=== PATIENT | male | born 1945 | race Caucasian/White ===

== ENCOUNTER 2019-03-15 18:10 | Inpatient (IN) | payer OTHER ==
[~2019-03-15] VITALS: Ht 175.3 cm; Wt 80.7 kg
--- NOTE | ~2019-03-15 | D ---
[facility] [place] [address] DISCHARGE SUMMARY Name: ARIAN SURESH Room #: 520A-A [facility] IN M.R.#: [id number] Admission: 03/15/19 Attend Phys: Shaan Brady DO Discharge: 03/30/19 Date of : 47 Report #: [id number] THIS REPORT FOR: //name// CC: Shaan Brady FAM physician/PCP DATE OF SERVICE: 03/30/2019 INPATIENT PSYCHIATRIC DISCHARGE SUMMARY ATTENDING PHYSICIAN: Shaan Brady DO. SEQUINS WINDER AT THE TIME OF DISCHARGE: Lorenzo Phillip MD. DISCHARGE DIAGNOSES: Major neurocognitive disorder, likely due to multiple factors including Alzheimer's disease with behavioral disturbance, improved. Comorbidities from this admission include urinary tract infection, on Keflex; hypothyroidism, on brand name of levothyroxine; hypertension; benign prostatic hypertrophy; aphasia secondary to possible a vascular event versus Alzheimer's process. DISCHARGE PLAN: Discharging to [facility]. DIET: Sodium restriction mechanical chopped, Ensure daily. The patient will need 24-hour assistance and supervision. DISCHARGE MEDICATIONS: Include tamsulosin 0.4 mg p.o. daily for BPH; losartan 100 mg p.o. daily for hypertension; Depakote Sprinkles 500 mg p.o. b.i.d. for impulse control and mood stabilization; Seroquel 125 mg p.o. at 0900, 1500, 2100 for psychosis and impulse control; memantine 10 mg p.o. daily; hydrochlorothiazide 12.5 mg p.o. daily; senna/docusate 2 tabs p.o. b.i.d., hold if diarrhea for bowel motility; cholecalciferol 5000 international units daily. The patient takes brand name Synthroid, was home supplied, I believe, it is 100 mcg p.o. daily. LABORATORY DATA: Of note from this admission are as follows: CBC within normal limits except hemoglobin and hematocrit 13.0 and 38.2, eosinophils high at 4.2. Metabolic panel most recent CMP/BMP was a BUN 24, creatinine 1.0, estimated GFR 73. Total T3 of 82. Ammonia level was 11. Urinalysis shows 3+ blood, few bacteria, couple other positives grew out Staphylococcus saprophyticus. Toxicology: Depakote level was 46 on 03/28, so we did increase it slightly. I believe it was 375 b.i.d. with Sprinkles. The patient should have level done in about a week at [facility] to document therapeutic range. REASON FOR ADMISSION: Back on 03/15/2019 is as follows: Sent from [address] [address] DISCHARGE SUMMARY Name: ARIAN SURESH Room #: 520A-A [facility] IN M.R.#: [id number] Admission: 03/15/19 Attend Phys: Shaan Brady DO Discharge: 03/30/19 Date of : 47 Report #: [id number] [place] due to concerns of increased aggression. There were some allegations of inappropriate sexual behavior. HOSPITAL COURSE: The patient was admitted to Geriatric-Psychiatry Unit. The patient did have some periods of combativeness, although he was generally not sexually inappropriate. The patient required some careful medication adjustments because we did run into the situation; however, he was too sedated. His daughter and he was understandably upset with this and back the Seroquel down to 125 mg 3 times a day, which showed improved alertness. He was more verbal, coming down you could count the number of words in a conversation he would make ____ with the right hand. He was at least 3 times ____ by the end of his stay. The patient unfortunately has overall unfavorable prognosis and family meeting time was spent counseling the family on this. On the day of discharge, the patient was not overtly suicidal or homicidal. Still some intermittent impulsiveness. PHYSICAL EXAMINATION: VITAL SIGNS: Temperature 37.0, pulse 84, respirations 13, BP 125/91, O2 sat 94%. MUSCULOSKELETAL: In the wheelchair. His gait did decline over the admission. MENTAL STATUS EXAMINATION: This is a well-developed, slightly unkempt male, appearing stated age. Attention and Concentration impaired. Speech variably verbal and at times nonsensical. Some psychomotor agitation, no psychomotor retardation. Mood and affect appeared to be congruent, generally calm. Memory not able to be tested. Insight impaired. Judgment impaired. Fund of knowledge well below average. Prognosis for patient is guarded. By: [id number] Shaan Brady, DO /nt
[2019-03-15 18:11] VITALS: BP 131/71
[2019-03-15 18:54] LABS: ABSOLUTE NEUTROPHILS 5.1 thou/uL (1.4-8.2); BASOPHILS 0.5 % (0.0-2.0); EOSINOPHILS 4.2 % (0.0-3.0); HEMATOCRIT 38.2 % (42.0-52.0); LYMPHOCYTES 29.1 % (24.0-44.0); MCH 32.2 pg (26.0-34.0); MCV 94.8 fL (80.0-100.0); PLATELET COUNT 235 thou/uL (150-400); POLYS 58.2 % (36.0-66.0); RBC 4.03 mil/uL (4.50-6.00); WBC 8.7 thou/uL (4.0-11.0)
[2019-03-15 18:54] LABS: URINE BILIRUBIN NEGATIVE (Negative); URINE BLOOD 3+ (Negative); URINE CLARITY SL CLOUDY; URINE COLOR YELLOW; URINE GLUCOSE-RANDOM* NEGATIVE (Negative); URINE KETONES NEGATIVE (Negative); URINE NITRITE-REFLEX NEGATIVE (Negative); URINE PROTEIN (DIPSTICK) NEGATIVE (Negative); URINE SPECIFIC GRAVITY 1.015 (1.005-1.035); URINE UROBILINOGEN 0.2 E.U./dl (0.2-1.0)
[2019-03-15 18:55] LABS: URINE LEUKOCYTES-REFLEX 3+ (Negative)
[2019-03-15 19:03] LABS: SQUAMOUS 0-3 Few /LPF (0-3); URINE RBC >20 Many /HPF (0-2)
[2019-03-15 19:04] LABS: BACTERIA-REFLEX 1-9 Few /HPF (None Seen); CASTS None Seen /LPF (None Seen); CRYSTALS None Seen /LPF (None Seen); TRANSITIONAL EPITHEL CELL 0-3 Few /LPF (None Seen)
[2019-03-15 19:05] LABS: CALCIUM 9.1 mg/dL (8.5-10.1); POTASSIUM 3.9 mmol/L (3.5-5.1)
[2019-03-15 19:08] LABS: ALBUMIN 3.6 g/dL (3.4-5.0); TOTAL BILIRUBIN 0.4 mg/dL (<0.1-1.0); TOTAL PROTEIN 6.7 g/dL (6.4-8.2)
[2019-03-15] MEDS ORDERED: ASA81BEC PO (19:10)
[2019-03-15] MEDS ORDERED: ARICEPT10 M1 PO (19:14)
[2019-03-15] MEDS ORDERED: PROZAC10 M1 PO (20:01)
[2019-03-15] MEDS ORDERED: PROZAC20 M1 PO (20:01)
[2019-03-15] MEDS ORDERED: LOSARTAN-HCTZ1 EAC3 PO (20:02)
[2019-03-15] MEDS ORDERED: MELATONIN3 M1 PO (20:02)
[2019-03-15] MEDS ORDERED: MEMANTINE HCL10 MG PO (20:03)
[2019-03-15] MEDS ORDERED: FLOMAX0.4 MG PO (20:04)
[2019-03-15] MEDS ORDERED: SYNTHROID100 MC1 PO (20:04)
[2019-03-15] MEDS ORDERED: TESSALON PERLE100 M1 PO (21:06)
[2019-03-15] MEDS ORDERED: ADVIL200 M3 PO (21:07)
[2019-03-15] MEDS ORDERED: LORAZEPAM 0.50.5 MG PO (21:08)
[2019-03-15] MEDS ORDERED: QUETIAPINE FUMA25 MG PO (21:09)
[2019-03-15 21:10] VITALS: BP 122/65
[2019-03-15] MEDS ORDERED: VALACYCLOVIR1000 MG PO (21:10)
[2019-03-15 23:52] VITALS: BP 129/71
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
[2019-03-16 07:56] VITALS: BP 183/90
[2019-03-16 10:00] LABS: FOLIC ACID 31.4 ng/mL (8.6-58.9)
[2019-03-16 12:30] VITALS: BP 146/85
--- NOTE | 2019-03-16 12:41 | NUR ---
Received pt on dining block, sitting on wheelchair. Drowsy but rousable. On room air. Vital signs stable-with BP elevation noted- BP meds given this AM. No code status noted. Dementia with aphasia noted- relative to bring in communication aids as per manager story nurse. No inappropriate behaviors noted this AM. Dr Melendez informed during his rounds re: drowsyness this morning. Encouraged and assisted in eating, drinking and ADLs. Falls bundle in place, on wheelchair with lap pads on. Due medications given as prescribed- able to swallow meds w/o difficulty. With fixation to female staff and hypersexual behaviors- none noted.
--- NOTE | 2019-03-16 13:42 | NUR ---
Nutrition: Assessing due to Dani score of 11. Admit: aggression, dementia. Pt in wheelchair, getting set up by nursing for lunch. Unable to interview pt this date. EMR states aphasia and that family is to bring in communication aids he uses at nursing facility. Per Dani, nutrition documented as adequate, score likely lower due to slightly limited mobility/in wheelchair. No wounds or skin issues documented. No weight loss or decreased appetite noted on nutrition screen. He did refuse breakfast, but lunch intake not yet recorded. Per latest RN note, is requiring encouragement and assistance w/ ADLs/meals. Will add daily Ensure until more data is available regarding po trends. Will follow up again 03/19 to reassess.
--- NOTE | 2019-03-16 15:27 | NUR ---
Leo called [facility] to get DPOA phone number Angelina Manjarrez [phone] and then called her and left a VM to complete the Leo assessment
[2019-03-16 20:00] VITALS: BP 136/105
--- NOTE | 2019-03-17 02:51 | NUR ---
patient aox1 confused and forgetful. patient incontinent of both bowel and bladder pericare and barrier cream applied as needed. patient was restless this shift but easy to redirect. no hypersexual behaviour noted this shift. patient calm and cooperative with care and meds. patient encouraged fluids. patient in bed asleep at this time breathing regular and unlaboured.
--- NOTE | 2019-03-17 12:03 | NUR ---
Leo spoke with pt's dght and set up a fmaily meeting for Mar 24 at 2pm. She reported that she would like a fmaily meeting and meet wiuth [facility] before contact is made. Leo also provided her with Dr Brady's phone number
[2019-03-17 13:14] VITALS: BP 114/93
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
[2019-03-17 16:49] VITALS: BP 114/93
[2019-03-17 19:24] VITALS: BP 107/72
[2019-03-18 01:18] VITALS: BP 107/72
--- NOTE | 2019-03-18 03:47 | NUR ---
PT RESTLESS AND WHEELING HIMSELF AROUND IN WC. MESSING WITH TRASH SACKS, BUT RESPONDED TO GENTLE REDIRECTION. SPEECH RAMBLING AND GENERALLY INCOHERANT. PLAYFUL AND COOPERATIVE WITH TAKING HS MEDS. HAS SLEPT WELL THROUGH THE NIGHT.
[2019-03-18 09:06] VITALS: BP 117/83
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
[2019-03-18 20:24] VITALS: BP 150/91
--- NOTE | 2019-03-19 04:09 | NUR ---
ASSUMED CARE ON 03/19/19 @ ABOUT 19:15, AMBULATING IN OTHER PATIENTS ROOMS, BUT REFUSED TO GO INTO HIS OWN ROOM. AMBULATING THROUGH THE DAY ROOM STOPPING AT PEERS CHAIR(S) AND TOUCHING THEIR WATER CUPS, PATTING THEIR ARMS AND GETING CLOSE AND INTRUSIVE. GIVES ONE PATIENT'S WATER TO ANOTHER PATIENT. AWAKE QUITE LATE, COMBATITIVE WITH INCONTINENT CARE. PROVIDED IM HALDOL 5MG AND IM ATIVAN 1MG ONE TIME FOR AGRESSION WITH ADL, AND INTRUSIVE BEHAVIOR. REDIRECTION QUITE DIFFICULT. A&O X 1 TO SELF ONLY, CAN ONLY STATE FIRST NAME. RECEIVED AN ORDER AND PROVIDED TRAZADONE PO FOR SLEEP. VERBALLY DEMONSTRATES SPEACH APHASIA, CONFUSION.
[2019-03-19 04:21] VITALS: BP 150/91
--- NOTE | 2019-03-19 05:59 | NUR ---
SLEPT 7 HOURS
[2019-03-19 09:06] VITALS: BP 124/92
[2019-03-19 09:27] VITALS: BP 124/92
--- NOTE | 2019-03-19 10:48 | NUR ---
Nutrition update: Following for po trends. Ensure Enlive supplementation added daily at start of week as it was unknown how oral intake would go. PO intake has been variable, but seems to be doing increasingly well today. Noted to be A&O to self only, confusion, speech aphasia. Ate 100% of breakfast and 100% AM snack today. Otherwise eating 50-100% of all recorded meals on 03/17, 03/18. Did refuse 2 meals yesterday, but no further refusals today. Drinking 50-100% of recent Ensure supplements. Last BM 03/18. Given semi inconsistent po trends thus far, will continue nutrition supplements. If PO trends remain mostly 75-100%, will keep as low nutrition risk. Continue to follow for any decline.
--- NOTE | 2019-03-19 12:02 | NUR ---
ASSUMED CARE AT 0700 THIS MORNING. PT. HAS BEEN COOPERATIVE WITH ASSESSMENT, MEDICATIONS, MEALS ON THE UNIT. HE REMAINS INCONTINENT. STAFF HAS HAD TO CLEAN HIM UP. HE IS A BIT AGITATED WITH THIS, PUSHING STAFF AWAY BUT DID NOT STRIKE OUT. SHE HAS REMAINED ON THE UNIT WATCHING TV MOST OF THE MORNING. HE IS UNABLE TO TALK SO HE CAN BE UNDERSTOOD. MOST OF HIS SPEECH IS UNINTELLIGIBLE.
[2019-03-19 20:36] VITALS: BP 96/71
[2019-03-19 22:56] VITALS: BP 96/71
--- NOTE | 2019-03-20 03:08 | NUR ---
PT UP IN DAYROOM EARLY IN SHIFT. VERY INVASIVE TOWARD OTHER PATIENTS, BUT RESPONDS TO REDIRECTION. WANDERING THE UNIT AND OCCASIONALLY INTO OTHER PTS ROOMS. NEEDED TO BE ESCORTED OUT OF SEVERAL ROOMS TONIGHT. HAS BEEN ESCORTED TO BED 3 TIMES BUT REMAINS RESTLESS AND UNABLE TO REST. SEROQUEL 100 FINALLY GIVEN AROUND 0200. BUT HE REMAINS UP IN DAYROOM OF THIS WRITING.
[2019-03-20 08:31] VITALS: BP 136/68
[2019-03-20 09:19] VITALS: BP 136/68
--- NOTE | 2019-03-20 15:29 | NUR ---
PT CALM ET COOPERATIVE THIS SHIFT. NOC SHIFT REPORTED THAT PT DID NOT SLEEP LAST NOC SO PT STAYED IN BED DURING BRKFST THIS AM. PT WAS ASSISTED UP AT LUNCH ET ATE ALL MEALS ET TOOK MEDICATIONS WITHOUT DIFFICULTY. AMBULATES AD PERLA. REDIRECTED EASILY. CONTINUES TO HAVE GARBLED SPEECH WITH VERY FEW CLEAR WORDS. DOES NOT FREQUENTLY SOCIALIZE WITH STAFF OR PEERS. WILL CONTINUE TO MONITOR PER PROTOCOL.
[2019-03-20 20:30] VITALS: BP 136/68
--- NOTE | 2019-03-21 00:06 | NUR ---
PATIENT HAS BEEN CALM AND COMPLIANT TONITE. HE HAS BEEN RESTLESS AND WANDERING INTO PATIENT ROOMS. HE HAS BEEN COMBATIVE WITH CARES. GEODON 15MG IM GIVEN. PATIENT WAS GETTING UP AND DOWN IN ROOM AND KEEPING HIS ROOM MATE UP. HE WANDERED INTO A FEMALE PATIENT'S ROOM AND CLIMBED INTO THE EMPTY BED IN HER ROOM. PATIENT DIRECTED BACK TO HIS BED. PATIENT CURRENTLY SLEEPING. BED ALARM ON AND BED IN LOW POSITION.
--- NOTE | 2019-03-21 02:03 | NUR ---
PATIENT'S DAUGHTER, NILE SURESH AND PATIENT'S EX SIGNIFICANT OTHER STARTED CALLING [facility] UNIT AROUND [address] WANTING INFORMATION ON PATIENT AND DID NOT HAVE CODE. THEY CALLED OFF AND ON FOR 2 HOURS ACTING LIKE THEY WERE THE OTHER AND MANIPULATING AND TRYING TO GET INFORMATION. AT ONE POINT NILE WAS YELLING AND BEING BELIGERANT WITH ME ON THE PHONE SO I HUNG UP. SHE CALLED BACK 2 HOURS LATER AND WAS CALMER, BUT THEN WAS CRYING. I SPOKE WITH VENEER CLIPPER, SELENA TO LET HER KNOW WHAT WAS GOING ON AND THEN PATIENT CALLED AND TALKED TO SELENA. EMAIL SENT UPDATING DR CHANEY, TONYA GUZMAN AND KENDRICK ELLISON, AND MAILE FLOYD. SPOKE WITH CHAZ FOR GUIDANCE ON THE JORGE QUESTIONS I HAD. SPOKE WITH JORGE BEFORE ALL OF THIS D/T SHE CALLED FOR AN UPDATE AND THEN TOLD ME I COULD LET NILE KNOW PATIENT'S CONDITION FOR OLVIER, WHICH I DID WHEN SHE CALLED BACK. I DID TELL JORGE DELEON THAT I COULD NO LONGER GIVE HER INFORMATION IF SHE DID NOT HAVE THE CODE. PANCHO WAS FINE WITH THIS. PANCHO STATES THAT NILE AND HER DO NOT TALK AND HAVE NOT FOR YEARS. NILE SURESH DIRECTED TO TO VEGETABLE PICKER IF MORE QUESTIONS.
[2019-03-21 08:19] VITALS: BP 143/92; BP 179/81
--- NOTE | 2019-03-21 14:26 | NUR ---
Leo spoke at length with Angelina and she stated that it was " ok to tell eriberto that dad is ok" but that Eriberto was not a decision maker and that her mom ( ex to pt0 was not to involved at all. Unfortunetly they have a HX of being beligerent with care takers and will lie about their identity to get information. Angelina is leaving it to the discretion of the [facility] staff on how many calls they are willing to take from Eriberto and that she is allow to get get information about her dad but that is all.
--- NOTE | 2019-03-21 14:44 | NUR ---
LEO spoke with pt's daughter Lidia [phone] and reported on her questions. Lidia was reasonable and willing to accomodate the restrictions on communication. Leo will advise nursing that it is OK to provide her with information but to redirect her to SW if there is difficulty. A code was not provided because Lidia's mother is not allowed to get any information. Lidia would like to be included in the family meeting on Saturday if Angelina agrees to it.
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
--- NOTE | 2019-03-21 16:14 | NUR ---
SW met with pt's visitors that included pt's ex , step dght and a friend. Nursing attempted to clarify if they were able to visit and the visitors did not have a code. Sw and nursing called DPOA and requested permission for the visit. SW then spoke with the visitors and educated them on the process and the protocol for this unit. Ex was not willing to take no for an answer and argued that she was being left out and Angelina was being controlling. Sw attempted redirect and explain but after a few attempts Sw advised them that the visit was over and they had to leave. Leo and nursinbg left voicemails for Angelina.
--- NOTE | 2019-03-21 16:38 | NUR ---
Pt's family returned with the code. They stated that they got it from Lidia. Lidia reported that she got it from nursing. family is aware that they can visit during visiting hours.
[2019-03-21 19:21] VITALS: BP 92/51
--- NOTE | 2019-03-21 22:52 | NUR ---
PATIENT RESTLESS TONIGHT. SPOKE WITH DR CHANEY AND HE SAID TO HOLD THE TRAZADONE AND GIVE SERQUEL 100MG PO. PATIENT WAS GIVEN THIS ABOUT AN HOUR AGO AND IS STILL VERY INTRUSIVE TRYING TO GO IN TO PATIENTS ROOMS AND GETTING FRUSTRATED/AGITATED WHEN TRYING TO BE REDIRECTED. SITTING IN DINING ROOM WITH PATIENT NOW HE THUMBS THRU PAPERS AND REORGANIZES THEM. PATIENT SHOWS NO SIGNS OF SHUTTING DOWN. WHEN TOILETED AND PLACED IN BED, HE GETS UP A FEW MINUTES LATER AND WANDERS. PATIENT HAD GEODON 15MG AT 1230 TODAY AND HAS NOT SLEPT A WINK SINCE HAVING IT. HE SLEPT VERY WELL LAST EVENING AFTER HAVING THE GEODON. PATIENT IS VERY BUSY. HE ALWAYS WANTS TO BE DOING SOMETHING. WILL CALL DR CHANEY IF PATIENT DOESN'T SHOW SIGNS OF CALMING DOWN SOON.
--- NOTE | 2019-03-22 00:34 | NUR ---
PATIENT BECOMING MORE DIFFICULT TO REDIRECT AND MORE WANDERING AND INTRUSIVE. PATIENT SAT AND FOLDED WASH CLOTHS FOR A BIT. CALLED DR CHANEY AND RECIEVED ORDER FOR GEODON 20MG IM. INJECTION TO LEFT DELTOID WITHOUT INCIDENT. PATIENT DIRECTED TO BATHROOM AND THEN ASSISTED TO BED. BED IN LOW POSITION AND BED ALARM ON. PATIENT STILL MOVING AROUND IN BED BUT QUIET. CONTINUING TO MONITOR.
[2019-03-22 00:40] VITALS: BP 92/51
--- NOTE | 2019-03-22 06:04 | NUR ---
PATIENT SLEPT THRU THE NIGHT AFTER RECEIVING GEODON 20MG IM. PATIENT WAS CHECKED REGULARLY FOR INCONTINENCE AND CARES PERFORMED NEEDED. PATIENT CURRENTLY STILL SLEEPING. BED IN LOW POSITION AND BED ALARM ON.
[2019-03-22 08:30] VITALS: BP 184/103
--- NOTE | 2019-03-22 10:04 | NUR ---
03/21 MAILE called and left LIANET Alfaro about family getting the code. 03/22 Maile spoke with Angelina and apologized that family got the code, she asked for the code to be changed. MAILE reported this to [employer] master control supervisor and she stated that this SW can create a new code and leave for nursing on the chart and give to Angelina. It was also established that Lidia can receive information about this pt by this SW and no one else. The new code is 2489. This was provided to Angelina and nursing.
--- NOTE | 2019-03-22 13:19 | NUR ---
SLEPT LATE THIS AM UNTIL APPROX 1000-ONCE UP IS AMBULATORY AND INTRUSIVE ENTERING PEERS ROOMS-ASSISTED TO BATHROOM AND WITH APPROX 5-10 MINUTES OF COAXING AND QUEING BRIEF WAS ABLE TO BE CHANGED WITHOUT BECOMING PHYSICALLY COMBATIVE. GAIT IS STEADY WITHOUT ASSISTIVE DEVICES-IMPUL;SIVE ATTEMPTING TO MOVE FURNITURE OR GET ON TOP OF BEDSIDE TABLE IN ROOM BUT SO FAR THIS SHIFT HAS BEEN ABLE TO BE REDIRECTED WITH PHYSICAL AGGRESSION-REQUIRES FREQUENT AND MULTIPLE ATTEMPTDS TO REDIRECT. BP NOTED TO BE ELEVATED THIS AM AT 184/100-CHRISTOPHER RECHECK AT 1230 BP IS 144/72
[2019-03-22 13:25] VITALS: BP 144/72
--- NOTE | 2019-03-22 16:49 | NUR ---
Nursing reported that this pt's ex attempted to visit and does nto ahve a code and was turned away. Then Lidia called and left a VM demanding a call back . Nursing then said that the ex wanted to speak with this Sw. In an attempt to ease staff tension this Sw spoke with her, and reported that the code was changed. She was not satisfied with this answer, and then she admitted she just wanted " to see if you were still here so Lidia could talk to you." I reported that I will answer my VM when I can and asked her stop contacting the staff or security would be called. This was witnessed by Donna HANKINS. MAILE had Keren LOPEZ as a witness to the phone called returned to Lidia. Maile offered to answer medical questions and Lidia became accusatory and challenged the decisions. She is also sending her HIPPA document via email so she can speak with nursing for updates. MAILE had to redirect her multiple times, and then hung up when Lidia became beligerant. Maile reported this to nursing and advised that no one take any calls from Lidia until the HIPPA is verified tomorrow.
--- NOTE | 2019-03-22 17:11 | NUR ---
SW received the HIPAA paperwork and printed it, and placed it on the chart for review.
[2019-03-22 20:12] VITALS: BP 93/62
[2019-03-22 22:52] VITALS: BP 93/62
--- NOTE | 2019-03-23 03:38 | NUR ---
PT OUT IN DAY ROOM EARLY IN THE SHIFT. RESTLESS AND PACING. CHECKING OUT ALL THE DOOR AND CABINETS. AFTER SNACKS, TOOK HS MEDS. INVASIVE AND ENTERING OTHER PTS ROOMS PERIODICALLY. ABLE TO REDIRECT. GIVEN PRN SEROQUEL 100MG AT 2400. HAS NOT SLEPT TONIGHT. CURRENTLY SITTING QUIETLY IN DAY ROOM. CONFUSED AND APHASIC.
--- NOTE | 2019-03-23 07:00 | NUR ---
Assumed care of patient this am. Patient up walking around. Patient calm and pleasant. Patient has to be redirected not to touch other people or take things from other people. Patient has to be encouraged to use walker. Patients gait is unsteady. Patient takes medications whole with liquids. Patients assessment reveals clear breath sounds, active bowel sounds and s1 s2 heard with auscultation. Patient denies pain.
[2019-03-23 07:30] VITALS: BP 111/80
[2019-03-23 07:32] VITALS: BP 111/80
--- NOTE | 2019-03-23 11:45 | NUR ---
PT's currently on track to achieving goal of one RT session to increase orientation and communication skills. Communicating has become much clearer from admission but still mumbles and stutters words. Pt wonders disoriented and confused with very little down time. Pt will except fidget vests, balls, wooden puzzle things to do, but will take off and place them all over the unit. Pt empties/goes through the trash, empties tissue boxes and sometimes makes wadded balls and eats them. Pt's standing proximity or touching boundies are often inappropriate. No change towards plan.
[2019-03-23 19:36] VITALS: BP 103/80
--- NOTE | 2019-03-23 22:30 | NUR ---
ASSUMED CARE ON 03/23/19 @ ABOUT 19:30, IN W/C IN DAY ROOM WITH LAP ANTHONY ON. COOPERATED WITH ASSESSMENT, UNABLE TO ANSWER MENTAL HEALTH QUESTIONS. HRRR, LUNGS CTA, ABD NORMOACTIVE X 4 Q. STAFF REPORTS BM ON 03/20. WHEN CLOSE TO OTHER PEERS, TOUCHES PEOPLE AND THEIR BELONGINGS AND DOES NOT RESPOND TO REDIRECTION, DUE TO DEMENTIA AND CONFUSION.
[2019-03-24 01:41] VITALS: BP 103/80
--- NOTE | 2019-03-24 03:35 | NUR ---
PHYSICALLY AGRESSIVE WITH X2 STAFF WHILE TRANSFERRING FROM W/C TO BED AND GIVING INCONTINENT CARE.
--- NOTE | 2019-03-24 06:14 | NUR ---
SLEPT 6 HOURS
--- NOTE | 2019-03-24 09:51 | NUR ---
MAILE spoke with Renea at length this AM. It ws decided that Lidia will get an email update about the meeting and will communicate with this Sw via email. Nursing reported that Lidia called twice yesterday for an update and was appropriate. In the event that she harrasses staff, or makes unreasonable demands on staff, she will get the medical infomation in written form once a day. Renea stated that she has been known to record phone calls and use 3 way calling to trick and manipulate staff. MAILE emailed a response to Lidia regarding the meeting today, including instructions and CC'd Harjit .
--- NOTE | 2019-03-24 15:17 | NUR ---
Maile met with Dr Brady and Renea, and the DON and Admin from [facility]. Dr brady reported on the meds changes and confirmed the d/c for early next week . MAILE emailed the notes from this family meeting to Lidia per her request. MAILE also asked US Angela to get the face sheet corrected. Maile also provided [facility] with a packet of medical records as an update. Pt later joined them and they visited for about 30 minutes.
--- NOTE | 2019-03-24 19:21 | NUR ---
Lying supine in bed without s/o distress. Garbled speech in response to questions. No speech/gestures suggestive of SI/HI. Alerts to name but no repsonse to other questions. Breath sounds clear t/o, bilaterally equal. Reg HR auscultated. Color pink with brisk capillary refill. No edema noted. Voids per brief. Takes yogurt with meds, compliant. Active bowel sounds over soft, rounded abdomen. Smear of stool around rectum. No documented BM since 03/18. 1600 Dr. Brady aware of no BM since 03/18. Mag Citrate ordered and given by Maurilio Fried, JOHN. Spent most of day in WC with peers. Daughter called twice and left message requesting update. Returned phone call. 1819 Remains in dining room with peers without s/o distress.
[2019-03-24 19:54] VITALS: BP 122/67
--- NOTE | 2019-03-25 04:12 | NUR ---
ASSUMED CARE ON 03/24/19 @ ABOUT 19:15, SITTING IN W/C WITH LAP ANTHONY IN PLACE. A&O X 1 TO PERSON ONLY. SPEAKS AND ANSWERS QUESTIONS, BUT THE WORDS DO NOT FORM A SENTENCE, GARBLED WORD CHANTELLEAD REPLY. TAKES MEDS CRUSHED IN PUDDING, PRN QUETIAPINE 100 MG GIVEN PO @ 23:10. EXPERIENCES INCREASED AGITATION, INCLUDING VISUAL HALLUCINATIONS, PT TRIES TO AUDITOR INTERNAL UNSEEN ITEMS FROM THE FLOOR AROUND HIS FEET. IM OLANZAPINE 10 MG GIVEN @ 0200, TRANSFERRED TO BED AND INCONTINENT CARE GIVEN. EYES CLOSED, RESPIRATIONS EVEN AND UNLABORED AT THIS WRITING.
[2019-03-25 05:39] VITALS: BP 122/67
--- NOTE | 2019-03-25 06:01 | NUR ---
SLEPT 3.4 HOURS
[2019-03-25 08:00] VITALS: BP 162/72
[2019-03-25 09:34] VITALS: BP 162/72
--- NOTE | 2019-03-25 12:07 | NUR ---
STAFF WANTED RN TO LOOK AT THE PATIENT'S FEET. UPON VISUALIZATION THEY ARE PINK, POSITIVE PEDAL PULSES. NO SKIN BREAKDOWN NOTED. +3 EDEMA TO RIGHT FOOT, +4 EDEMA TO LEFT FOOT. NO DISCOLORATION NOTED EITHER. TOENAILS LONG.
[2019-03-25 13:14] VITALS: BP 163/72
--- NOTE | 2019-03-25 13:45 | NUR ---
0700 Assumed care. Patient was sleepy this morning. Daughter visitied found him sleepy and discussed medication changes with the the psychiatrist. Med changes done. Patient has good appetite. Breakfast and lunch consumed. 1300 Patient alert and fully awake. Talking to other patients. Will continue to monitor.
--- NOTE | 2019-03-25 14:32 | NUR ---
TALKED TO DR. RIOS RE:PT'S FEET BEING EDEMATOUS. STATED HE WOULD LOOK AT HIS MEDICATIONS AND POSSIBLY PLACE HIM ON SOME LASIX.
--- NOTE | 2019-03-25 15:48 | NUR ---
Pt's daughter Robert called to the nurse station a couple times. The studio receptionist asked SW to talk with her because she does not have a code and wants pt updates. She also asked the studio receptionist for the code. MAILE explained to the studio receptionist that Robert can receive updates, but is not supposed to have the code. The receptionst transferred Robert to . Robert began the phone conversation irate that she was transferred to and stated that she was told "she can call to the unit at any time and nursing staff have to give her updates." MAILE explained she would be happy to give her updates; however, contrary to what she believes she was told that updates can be provided pending the nursing staff are available to do so. She cannot call once an hour and get updates because there is no staffing available for that. MAILE read to her notes from the last day. Robert said thank you and then again wanted to address that she needs to be able to get updates "whenever she wants and as many times as she likes. She also mentioned the code. MALIE stated that Robert knows she can receive updates but cannot have the code. She began to raise her voice and yell. MAILE warned her twice to not speak in that manner or she will have to disconnect the call. Robert continued so MAILE said to her "I am hanging up. Goodbye and have a Happy New Year." MAILE team will continue to follow pt during her stay on this unit.
[2019-03-25 19:32] VITALS: BP 106/67
--- NOTE | 2019-03-26 02:16 | NUR ---
ASSSUMED CARE FROM DAY SHIFT PT UP IN WHEELCHAIR ASSESMENT COMPLETED PT CONFUSED , WAS ABLE TO TAKE MEDICATON IN ICE CREAM BUT WAS NOT ABLE TO FEED SLEF THE REMINDER OF SNACK. NURSE FED THE REST OF ICE CREAM TO PATIENT. PT ALOS BECAME AGRESSIVE WHEN ATTEMPTED TO REPLACE HAT ON HEAD THAT HAD FALLEN OFF. PT GRAB AND PUSH NURSE. DAUGHTER MICOLE CALLED FOR UPDATE AND STATUS REPORT. SO FAR PT REMAINS IN WHEELCHAIR PICKING AT PANTS AND CHAIR AND THINGS IN AIR, NOT SLEEPING , PT REMAIN AGITATED THROUGHOUT SHIFT, PANCHO DISCOURAGE GIVEN PT MEDICATON DUE PT WAS VERY DROWSY THIS PASS AM. WILL CONINTUE TO FREQ ROUNDS AND REPORT CHANGES OR ABNORMAL FINDINGS. SO FAR NO PRN MEDICATION GIVEN.
[2019-03-26 06:22] LABS: CALCIUM 9.4 mg/dL (8.5-10.1); CREATININE 1.1 mg/dL (0.7-1.3); POTASSIUM 3.1 mmol/L (3.5-5.1)
[2019-03-26 09:06] VITALS: BP 170/92
--- NOTE | 2019-03-26 11:46 | NUR ---
Nutrition follow up: Pt continues to eat really well for the most part. Eating 50-100% of most meals. Meal average = 67% per the last 3 consecutive days with no meal refusals. Good appetite noted by nursing yesterday. He is still within ~2# of weight from 1 week ago. 170.5# on 03/16, 168# per 03/23. Nursing notes indicate edematous feet w/ 3+ edema in R foot, 4+ edema in L foot. Pt may benefit from reduced sodium diet. Note new orders for chopped foods today. Will request low Na diet restrictions be added on too. Pt drinking 50-100% of 1 daily Ensure Enlive for the most part. Will continue for added kcal/protein benefit. Keep as low nutrition risk.
[2019-03-26 11:50] VITALS: BP 114/61
--- NOTE | 2019-03-26 14:15 | NUR ---
Sitting in WC bent at waist. Combative when trying to redirect. Brought back to room for assessment. Only verbalizations are profanity with some rambling speech that is not understandable. No response to questions r/t orientation, pain or SI/HI. No verbalizations or actions suggestive of SI/HI, pain. Breath sounds clear t/o, bilaterally equal. Reg HR auscultated. Color pink with brisk capillary refill and palpable peripheral pulses. Incontinent of large amount of yellow urine per brief. Active bowel sounds over soft, rounded abdomen. Ambulates with assistance of 2 staff members about 20 feet. Gait very unsteady. Placed in recliner in day room. 1100 Ate about 5 bites of breakfast and drank all liquids including bottle of ensure. Daughter here visiting. Many questions. Expressing concern about usefulness of medication and edema in feet. Dr. Brady discussing progress with daughter. Daughter requesting copies of medical record including medication lists. Referred to medical record dept after conferring with scrap charger. 1400 Bed bath and shave done by hand washer. Much more alert, sitting up in WC and looking around day room. Rambling speech that is not understandable. Calm. Took liquid KCL without difficulty and ate yogurt with lasix that was crushed. No s/o distress.
[2019-03-26 19:46] VITALS: BP 118/59
--- NOTE | 2019-03-27 02:11 | NUR ---
ASSUMED CARE FROM DAY SHIFT PT IN RECLINER CHAIR AWAKE , APPEARS TO BE WATCHING TV. HS SNACK EATEN OF ICE CREAM AND PO MEDICATION TAKEN. PT THEN ASSISTED TO BED AFTER TAI CARE. PT THEN LIAD IN BED FOR 30 MIND THEN CLIMB OUT OF BED CAUSING BED ALARM TO ALARM. PT THEN PLACED BACK IN RECLINER WITH LAP-ANTHONY. DAUGHTER PANCHO CALLED AND UPDATE GIVEN ON FATHER STATUS, DAUGHTER STATES THAT FATHER USALLY SLEEPS IN CHAIR OR SOFA BUT RAELY IN THE BED. PT LESS AGRRESSIVE WITH STAFF. WILL CONINTUE WITH CURRENT PLAN OF CARE AND WILL REPORT CHANGES OR ABNORMAL FINDINGS FREQ CHECKS CONINTUE FOR SAFETY.
[2019-03-27 06:49] LABS: CALCIUM 9.5 mg/dL (8.5-10.1); POTASSIUM 3.7 mmol/L (3.5-5.1)
[2019-03-27 08:14] VITALS: BP 114/62
--- NOTE | 2019-03-27 15:02 | NUR ---
LEO called Renea and left a VM regarding Saturday D/C. Then left a VM for admissions at [facility] to set up a time for transportation. weekend Leo will send updates
--- NOTE | 2019-03-27 17:05 | NUR ---
PT ASSESSED AT START OF SHIFT. LESS CONFUSED AND SPEECH MORE COHERENT W/ SOME SHORT SENTENCES THIS AFTERNOON. EATING FAIR WHEN FED. TAKING MEDS CRUSHED IN APPLESAUCE W/ MUCH ENCOURAGEMENT AND DISTRACTION. EASILY AGITATED WHEN ROUTINE DISRUPTED OR THINGS HE DOESN'T LIKE. DAUGHTER HERE TO VISIT AND HAPPY TO SEE DAD DOING MUCH BETTER.
--- NOTE | 2019-03-27 21:52 | NUR ---
ASSUMED CARE ON 03/27/19 AT ABOUT 19:20, IN W/C WITH LAP ANTHONY IN PLACE. AT ABOUT 2100 TOOK HIS SHIRT OFF AND COULD NOT BE CONVINCED TO LEAVE IT ON. COOPERATED WITH ASSESSMENT, TOOK MEDS CRUSHED IN ICE CREAM WITH WATER. ALERT, ORIENTED TO FIRST NAME ONLY, SPEAKS INDIVIDUAL WORDS, BUT DOES NOT MAKE A SENTENCE. WORD SALAD NOTED. WILL CONTINUE TO MONITOR Q 12 MINUTES FOR PATIENT SAFETY.
[2019-03-27 23:58] VITALS: BP 114/62
--- NOTE | 2019-03-28 05:34 | NUR ---
slept 4 hours overnight
[2019-03-28 07:50] VITALS: BP 137/86
[2019-03-28 09:59] VITALS: BP 137/86
--- NOTE | 2019-03-28 10:17 | NUR ---
0647 REPORT RECEIVED FROM OVERNIGHT SHIFT, PATIENT WAS NOT COMBATIVE THIS MORNING WITH HYGIENE. PATIENT ATE BREAKFAST TOOK MEDICATION WITHOUT INCIDENCE. PATIENT QUIET, CALM, COOPERATIVE THIS AM. WILL CONTINUE TO MONITOR PATIENT FOR BEHAVIORS AND SAFETY.
--- NOTE | 2019-03-28 13:51 | NUR ---
Date of Admission: 03/15/19 Date of Activity Therapy Assessment:03/18/2019 Activity Goal:One group or 1:1 session Initial Goal:Pt will attend at least one recreation therapy group or 1:! session, per day, to increase orientation and communication skills. Weekly progress towards goal:Achieved Group participation level:Passive Behaviors observed: Pt appears disoriented and confused. Pt has been seen wandering and trying to climb things. Pt passively participates in groups. Plan: No change towards goal
[2019-03-28 19:46] VITALS: BP 123/74
--- NOTE | 2019-03-29 03:46 | NUR ---
ASSUMED CARE OF PATIENT AT APPROXIMATELY 1915 ON 03/28/19. PATIENT IS IN DAY ROOM, WHEN TALKING TO PATIENT SPEECH WAS GARBLED AND DIFFICULT TO UNDERSTAND. HE REFUSED HS MEDS, IM ZYPREXA GIVEN ORDERED. HE DID BECOME COMBATIVE AT ONE POINT BUT WAS EASILY REDIRECTABLE. NURSING STAFF LED PT TO HIS ROOM TO LAY DOWN, BUT PATIENT KEPT GETTING UP WITH AN UNSTEADY GAIT. CURRENTLY AT THIS TIME PATIENT IS IN DAY ROOM WITH EYES CLOSED RR EVEN AND UNLABORED, NO S/S OF MEDICAL DISTRESS. WILL CONTINUE TO MONITOR.
[2019-03-29 09:24] VITALS: BP 111/76
--- NOTE | 2019-03-29 19:12 | NUR ---
0715 ASSUMED CARE OF PATIENT ON 03/29/19. PATIENT IN RECLYNER SLEEPING IN DAY ROOM. 0815 AWAKES WHEN NAME CALLED. UNABLE TO ANSWER QUESTIONS, STARTS TO RAMBLE ON WHEN TALKING TO. SLEEPS DURING BREAKFAST. MEDS TAKEN CRUSHED WITH PUDDING WITHOUT INCIDENT. LAP BUDDING IN PLACE FOR UNSTEADY BALANCE WHEN AMBULATING.
--- NOTE | 2019-03-29 19:16 | NUR ---
AT 1600 DAUGHTER PANCHO HERE VISITING. PATIENT UP AMBULATING IN HALLWAYS WITH DAUGHTER. DAUGHTER STATES " I AM HAPPY TO SEE MY DAD DOING BETTER". PATIENT ATE DINNER WITH ASSISTANCE. PATIENT IN DAYROOM IN RECLYNER .
[2019-03-29 20:22] VITALS: BP 115/87
--- NOTE | 2019-03-30 00:57 | NUR ---
ASSUMED CARE ON 03/29/19 @ 19:15, SITTING IN A W/C WITH A LAP ANTHONY IN PLACE. A&O X 1 TO PERSON, ABLE TO STATE FULL NAME. WHEN SPOKEN TO, ANSWERS IN RAMBLING GARBLED SPEACH. HRRR, LUNGS CTA, ABD NORMO X 4Q. TOOK MEDS CRUSHED IN PUDDING @ ABOUT 20:15, NOTED TO BE AWAKE @ 22:00, GIVEN TRAZADONE PO FOR INSOMNIA, AND TYLENOL PO FOR GENERAL DISCOMFORT. WHEN TRANSFERRED TO BED @ 23:20, BECAME COMBATITIVE WITH CARE, GIVEN OLANZAPINE 5 MG IM. TRANSFERRED TO BED X 2 ASSIST, AND HEAD OF BED RAISED AND FEET RAISED. BED IN LOW POSITION AND BED ALARM SET, RESTLESS AND AWAKE OF THIS WRITING. WILL CONTINUE TO MONITOR Q 12 MINUTES FOR PATIENT SAFETY.
[2019-03-30 04:19] VITALS: BP 115/87
--- NOTE | 2019-03-30 06:32 | NUR ---
slept 1.4 hours overnight
--- NOTE | 2019-03-30 08:59 | NUR ---
Leo left a VM and then spoke with pt's dght and reported that d/c could be today. She would like to speak with Dr Brady today and will be up for a visit this AM. Leo also called and left another VM at [facility].
[2019-03-30 09:21] VITALS: BP 125/91
--- NOTE | 2019-03-30 11:38 | NUR ---
ASSUMED CARE AT 0700 THIS MORNING. PT. IN A W/C SITTING. HE WAS PLEASANT WITH THE ASSESSMENT BUT GRABBED THIS RN'S ARM AND STARTED PULLING ME CLOSER TO HIM. I ASKED HIM TO LET GO, HE LOOKED AT ME AND THEN LET GO. HE HAS SPOKEN VERY LITTLE, MOSTLY WORD SALAD, BUT OCCASIONALLY WILL ANSWER QUESTIONS WHEN ASKED. HIS DAUGHTER ARRIVED AT 1045 FOR SITTING AND WANTED TO ASK A FEW QUIESTION. THIS SORTER/ASSAY TECH SAT WITH HER AND ANSWERED QUESTIONS. THE DAUGHTER SHAVED HIM WITH AN ELECTRIC RAZOR BELONGING TO THE PT. BELONGINGS GATHERED AND SENT HOME WITH THE DAUGHTER. DAUGHTER WAITED TO SPEAK WITH DR. CHANEY.
[2019-03-30] MEDS ORDERED: FLOMAX0.4 MG PO (12:58)
[2019-03-30] MEDS ORDERED: COZAAR100 MG PO (12:58)
[2019-03-30] MEDS ORDERED: DEPAKOTE SPRIN125 MG PO (12:59)
[2019-03-30] MEDS ORDERED: SEROQUEL 100 M100 M1 PO ×2 (13:00)
[2019-03-30] MEDS ORDERED: SEROQUEL 25 MG25 M1 PO (13:00)
[2019-03-30] MEDS ORDERED: NAMENDA 5 MG TAB5 M1 PO (13:01)
[2019-03-30] MEDS ORDERED: HYDROCHLOROTH12.5 M1 PO (13:01)
[2019-03-30] MEDS ORDERED: SENNA-TIME S T1 EACH PO (13:02)
[2019-03-30] MEDS ORDERED: VITAMIN D325 MCG PO (13:02)
[2019-03-30] MEDS ORDERED: HOME MEDICATION PO (13:02)
--- NOTE | 2019-03-30 13:59 | NUR ---
Leo spoke with [facility] and set up transportation for 2-2:30pm . Leo reproted this to nursing and Dr Brady and sylvia Meier. LEO made packet and left it on the chart. Leo sent the d/c summary, labs and recent notes via fax.
--- NOTE | 2019-04-01 12:25 | NUR ---
I called Frank's DPOA today and left a message for her to call me.
== END 2019-03-30 13:30 | DRG 57 ==
LOC: ER 18:10 → SBH 19:28 → EROBS 19:28 → ER 19:28 → SBH 19:41
PROVIDERS: Hospitalist; Nurse Practitioner Family; Physician Assistant; ADMIT Psychiatry & Neurology Psychiatry
DX: G30.9 Alzheimer's disease, unspecified (principal); F01.51 Vascular dementia, unspecified severity, with behavioral disturbance; N39.0 Urinary tract infection, site not specified; F02.81 Dementia in other diseases classified elsewhere, unspecified severity, with behavioral disturbance; R47.01 Aphasia; I10 Essential (primary) hypertension; E03.9 Hypothyroidism, unspecified; N40.0 Benign prostatic hyperplasia without lower urinary tract symptoms; Z79.899 Other long term (current) drug therapy; Z79.82 Long term (current) use of aspirin; Z79.51 Long term (current) use of inhaled steroids
CPT/HCPCS: 10880